=== PATIENT | female | born 1940 | race Caucasian/White ===

== ENCOUNTER 2017-01-16 15:01 | Emergency (ER) | payer OTHER, MEDICARE ==
[~2017-01-16] VITALS: Ht 154.9 cm; Wt 87.6 kg
[~2017-01-16 15:01] MED LIST: BACLOFEN10 MG PO; CARDIZEM LA180 MG PO; CARDIZEM60 MG PO; CARTIA XT240 MG PO; COLACE100 MG PO; CONZIP100 MG PO; COUMADIN1 MG PO; FUROSEMIDE20 MG PO; HCTZ PO; HYDROCHLOROTH12.5 M3 PO; HYDROCHLOROTHIA25 MG PO; HYDROCODON-ACE1 EAC7 PO; IRON325 M1 PO; LEVOTHYROXINE25 MCG PO; LOPRESSOR25 MG PO; LOVENOX40 MG/0.4 SC; METOPROLOL SUCC25 MG PO; PAIN RELIEF EX500 MG PO; PERCOCET 5/31 TABLET PO; PRAMIPEXOLE0.125 MG PO; PROMETHAZINE HC25 M1 PO; SENNA S TABLET1 EACH PO; TRAMADOL HCL50 MG PO; TYLENOL EXTRA500 MG PO; XARELTO20 MG PO
[2017-01-16 18:25] VITALS: BP 133/64
== END 2017-01-16 18:32 | disposition home or self-care (01) ==
LOC: EME 15:01
PROC: 0SWBXJZ Revision of Synthetic Substitute in Left Hip Joint, External Approach (ICD-10-PCS; principal; 2017-01-16)
DX: T84.021A Dislocation of internal left hip prosthesis, initial encounter (principal); Z96.642 Presence of left artificial hip joint; Z88.2 Allergy status to sulfonamides; Z88.8 Allergy status to other drugs, medicaments and biological substances; Z88.6 Allergy status to analgesic agent
CPT/HCPCS: 73501; 73502; 99281; 99285; J3010

== ENCOUNTER 2017-10-07 21:02 | Inpatient (IN) | payer OTHER, MEDICARE ==
[~2017-10-07] VITALS: Ht 152.4 cm; Wt 106.6 kg
[~2017-10-07 21:02] MED LIST changes: +K-DUR20 MEQ PO; +METOLAZONE5 MG PO
[2017-10-08] MEDS ORDERED: TYLENOL EXTRA500 MG PO (10:07)
[2017-10-08] MEDS ORDERED: RESTLESS LEG (10:09)
[2017-10-08] MEDS ORDERED: ASPERCREME 1035.4 GM TP (10:11)
[2017-10-08 10:15] VITALS: BP 154/74
[2017-10-08 17:12] VITALS: BP 147/70
[2017-10-08 20:56] VITALS: BP 126/62
[2017-10-09 00:15] VITALS: BP 117/68
[2017-10-09 04:37] VITALS: BP 145/63
[2017-10-09 05:53] LABS: HEMATOCRIT 32.1 % (36.0-46.0); MCV 97.3 FL (83-99)
[2017-10-09 05:55] LABS: HEMOGLOBIN 10.5 G/DL (11.9-15.5)
[2017-10-09 06:20] LABS: CHLORIDE 102 MEQ/L (99-109); GFR ESTIMATE (CALCULATED) 57 mL/min/; GLUCOSE 103 mg/dL (70-99); POTASSIUM 3.1 MEQ/L (3.7-5.4); SODIUM 139 MEQ/L (136-147); UREA NITROGEN (BUN) 19 mg/dL (9-23)
[2017-10-09 08:28] VITALS: BP 116/56
[2017-10-09 11:36] VITALS: BP 134/75
[2017-10-09 16:33] VITALS: BP 149/72
[2017-10-09 20:17] VITALS: BP 130/65
[2017-10-10 00:30] VITALS: BP 140/62
[2017-10-10 06:00] LABS: HEMATOCRIT 31.2 % (36.0-46.0); HEMOGLOBIN 10.5 G/DL (11.9-15.5)
[2017-10-10 08:27] VITALS: BP 128/69
[2017-10-10] MEDS ORDERED: BENADRYL25 MG PO (09:14)
[2017-10-10] MEDS ORDERED: BISACODYL5 MG PO (09:16)
[2017-10-10] MEDS ORDERED: ELIQUIS2.5 MG PO (09:17)
[2017-10-10] MEDS ORDERED: OXYCODONE HCL5 MG PO (09:17)
[2017-10-10 11:53] VITALS: BP 132/62
[2017-10-10 15:13] LABS: CHLORIDE 92 MEQ/L (99-109); POTASSIUM 2.9 MEQ/L (3.7-5.4); SODIUM 136 MEQ/L (136-147)
[2017-10-10 15:19] LABS: CREATININE 0.8 MG/DL (0.6-1.3); GFR ESTIMATE (CALCULATED) > 59 mL/min/; GLUCOSE 127 mg/dL (70-99); UREA NITROGEN (BUN) 16 mg/dL (9-23)
== END 2017-10-10 15:43 | disposition home or self-care (01) | DRG 470 ==
LOC: ENRESERV 21:02 → 2SOUTH 10-08 09:32 → ENRESERV 10-08 15:23 → 3EAST 10-08 17:01
PROVIDERS: Orthopaedic Surgery
PROC: 0SRC0J9 Replacement of Right Knee Joint with Synthetic Substitute, Cemented, Open Approach (ICD-10-PCS; principal; 2017-10-08)
DX: M17.11 Unilateral primary osteoarthritis, right knee (principal); Z68.42 Body mass index [BMI] 45.0-49.9, adult; Z96.643 Presence of artificial hip joint, bilateral; I48.91 Unspecified atrial fibrillation; E66.01 Morbid (severe) obesity due to excess calories; E87.6 Hypokalemia
CPT/HCPCS: 80048; 85014; 85018; C1776; J0131; J0690; J1170; J1885; J2250; J2405; J2795; J7050; J7120

== ENCOUNTER 2018-01-19 12:28 | Inpatient (IN) | payer OTHER, MEDICARE ==
[~2018-01-19] VITALS: Ht 154.9 cm; Wt 89.3 kg
[~2018-01-19 12:28] MED LIST changes: +ASPERCREME 1035.4 GM TP; +BENADRYL25 MG PO; +BISACODYL5 MG PO; +ELIQUIS2.5 MG PO; -LEVOTHYROXINE25 MCG PO; +MIRAPEX0.125 MG PO; +OXYCODONE HCL5 MG PO; +RESTLESS LEG; +SYNTHROID50 MCG PO
[2018-01-19 16:58] LABS: BASOPHIL (%) 0.1 % (0-1); EOSINOPHIL (%) 0.8 % (0-5); EOSINOPHIL COUNT 0.1 K/uL (0-0.3); HEMOGLOBIN 11.8 G/DL (11.9-15.5); IMMATURE GRANULOCYTE (%) 0.4 % (0.0-0.7); LYMPHOCYTE (%) 16.8 % (15-42); LYMPHOCYTE COUNT 1.6 K/uL (1.0-2.8); MCH 30.8 PG (29.0-34.0); MCHC 33.7 G/DL (30.0-36.0); MCV 91.4 FL (83-99); MONOCYTE (%) 7.6 % (3-12); MONOCYTE COUNT 0.7 K/uL (0-0.8); NEUTROPHIL (%) 74.3 % (45-76); NEUTROPHIL COUNT 6.9 K/uL (1.8-6.4); PLATELET COUNT 299 K/uL (156-360); RBC DIS.WIDTH-CV 12.4 % (11.8-14.6); RBC DIS.WIDTH-SD 41.4 % (39-53); RED BLOOD COUNT 3.83 M/uL (3.80-5.20); WHITE BLOOD COUNT 9.3 K/uL (4.1-10.2)
[2018-01-19 17:02] LABS: INTER. NORMALIZED RATIO 1.1
[2018-01-19] MEDS ORDERED: BENADRYL25 MG PO (17:04)
[2018-01-19] MEDS ORDERED: ULTRAM50 MG PO (17:14)
[2018-01-19] MEDS ORDERED: CREAM (17:15)
[2018-01-19 17:30] LABS: TROP-I INTERPRETATION NEGATIVE; TROPONIN-I 0.03 ng/mL (0.0-0.30)
[2018-01-19 17:40] LABS: ALBUMIN 4.1 G/DL (3.2-4.8); ALKALINE PHOSPHATASE 64 IU/L (3-129); ALT (GPT) 11 IU/L (3-49); AST (GOT) 23 IU/L (2-34); CHLORIDE 98 MEQ/L (99-109); CREATININE 0.9 MG/DL (0.6-1.3); GFR ESTIMATE (CALCULATED) > 59 mL/min/; GLUCOSE 113 mg/dL (70-99); MAGNESIUM 1.8 mg/dl (1.3-2.7); POTASSIUM 3.4 MEQ/L (3.7-5.4); SODIUM 138 MEQ/L (136-147); TOTAL PROTEIN 7.4 G/DL (6.4-8.3); UREA NITROGEN (BUN) 24 mg/dL (9-23)
[2018-01-19 17:54] LABS: THYROTROPIN (TSH) 5.7 MIU/L (0.4-5.5)
[2018-01-19 20:46] VITALS: BP 150/70
[2018-01-19 23:37] VITALS: BP 152/71
[2018-01-20 03:44] VITALS: BP 120/58
[2018-01-20 05:58] LABS: HEMATOCRIT 32.5 % (36.0-46.0); HEMOGLOBIN 10.8 G/DL (11.9-15.5); MCH 30.3 PG (29.0-34.0); MCHC 33.2 G/DL (30.0-36.0); MCV 91.3 FL (83-99); PLATELET COUNT 276 K/uL (156-360); RBC DIS.WIDTH-CV 12.8 % (11.8-14.6); RBC DIS.WIDTH-SD 42.3 % (39-53); RED BLOOD COUNT 3.56 M/uL (3.80-5.20)
[2018-01-20 06:19] LABS: CHLORIDE 100 MEQ/L (99-109); CREATININE 0.7 MG/DL (0.6-1.3); GFR ESTIMATE (CALCULATED) > 59 mL/min/; GLUCOSE 100 mg/dL (70-99); POTASSIUM 3.5 MEQ/L (3.7-5.4); SODIUM 139 MEQ/L (136-147); UREA NITROGEN (BUN) 18 mg/dL (9-23)
[2018-01-20 07:40] VITALS: BP 139/63
[2018-01-20 11:20] VITALS: BP 152/68
[2018-01-20 15:47] VITALS: BP 145/65
[2018-01-20 19:29] VITALS: BP 138/73
[2018-01-20 23:35] VITALS: BP 139/66
[2018-01-21 04:16] VITALS: BP 131/68
[2018-01-21 06:20] LABS: HEMATOCRIT 34.7 % (36.0-46.0); HEMOGLOBIN 11.2 G/DL (11.9-15.5); MCH 29.8 PG (29.0-34.0); MCHC 32.3 G/DL (30.0-36.0); MCV 92.3 FL (83-99); PLATELET COUNT 301 K/uL (156-360); RBC DIS.WIDTH-SD 43.9 % (39-53); RED BLOOD COUNT 3.76 M/uL (3.80-5.20)
[2018-01-21 06:43] LABS: CHLORIDE 96 MEQ/L (99-109); CREATININE 1.1 MG/DL (0.6-1.3); GFR ESTIMATE (CALCULATED) 51 mL/min/; GLUCOSE 99 mg/dL (70-99); MAGNESIUM 1.6 mg/dl (1.3-2.7); POTASSIUM 3.1 MEQ/L (3.7-5.4); SODIUM 138 MEQ/L (136-147); UREA NITROGEN (BUN) 21 mg/dL (9-23)
[2018-01-21 07:51] VITALS: BP 134/62
[2018-01-21 11:22] VITALS: BP 137/65
[2018-01-21 16:43] VITALS: BP 141/77
[2018-01-21 20:28] VITALS: BP 130/60
[2018-01-21 23:36] VITALS: BP 118/58
[2018-01-22 03:47] VITALS: BP 118/62
[2018-01-22 07:23] LABS: CHLORIDE 97 MEQ/L (99-109); CREATININE 1.1 MG/DL (0.6-1.3); GFR ESTIMATE (CALCULATED) 51 mL/min/; GLUCOSE 98 mg/dL (70-99); POTASSIUM 3.6 MEQ/L (3.7-5.4); SODIUM 138 MEQ/L (136-147); UREA NITROGEN (BUN) 34 mg/dL (9-23)
[2018-01-22 08:22] VITALS: BP 134/63
[2018-01-22 11:20] VITALS: BP 137/63
[2018-01-22] MEDS ORDERED: TIZANIDINE HCL4 MG PO (13:12)
[2018-01-22] MEDS ORDERED: OXYCODONE HCL5 MG PO (13:12)
[2018-01-22 15:47] VITALS: BP 146/52
== END 2018-01-22 17:34 | disposition home health service (06) | DRG 560 ==
LOC: EME 12:28 → EDOF 18:17 → 3EAST 18:17 → ENRESERV 18:21 → 3EAST 20:36
PROVIDERS: Emergency Medicine; Hospitalist; Internal Medicine; Orthopaedic Surgery
PROC: 0SWBXJZ Revision of Synthetic Substitute in Left Hip Joint, External Approach (ICD-10-PCS; principal; 2018-01-19)
DX: T84.021A Dislocation of internal left hip prosthesis, initial encounter (principal); I48.92 Unspecified atrial flutter; E87.6 Hypokalemia; G25.81 Restless legs syndrome; I10 Essential (primary) hypertension; I48.2 Chronic atrial fibrillation; Z96.651 Presence of right artificial knee joint; Z96.643 Presence of artificial hip joint, bilateral; Y79.2 Prosthetic and other implants, materials and accessory orthopedic devices associated with adverse incidents; E07.9 Disorder of thyroid, unspecified; E66.9 Obesity, unspecified; Z79.01 Long term (current) use of anticoagulants; Z88.5 Allergy status to narcotic agent; Z88.2 Allergy status to sulfonamides; Z88.6 Allergy status to analgesic agent; Z88.1 Allergy status to other antibiotic agents; Z68.37 Body mass index [BMI] 37.0-37.9, adult; Z90.49 Acquired absence of other specified parts of digestive tract
CPT/HCPCS: 71045; 73501; 73502; 73700; 73702; 76000; 80048; 80053; 83735; 84439; 84443; 84484; 85025; 85027; 85610; 85730; 93005; 97530 GO; 99281; 99285; J0131; J0330; J1170; J1650; J3010; J3480; J7030; J7050

== ENCOUNTER 2018-03-18 09:49 | Emergency (ER) | payer OTHER, MEDICARE ==
[~2018-03-18] VITALS: Ht 152.4 cm; Wt 88.7 kg
[~2018-03-18 09:49] MED LIST changes: +CREAM; +TIZANIDINE HCL4 MG PO; +ULTRAM50 MG PO
[2018-03-18 12:11] LABS: BASOPHIL (%) 0.3 % (0-1); EOSINOPHIL (%) 0.3 % (0-5); HEMATOCRIT 34.5 % (36.0-46.0); HEMOGLOBIN 11.5 G/DL (11.9-15.5); IMMATURE GRANULOCYTE (%) 0.6 % (0.0-0.7); LYMPHOCYTE (%) 13.3 % (15-42); LYMPHOCYTE COUNT 1.3 K/uL (1.0-2.8); MCH 30.2 PG (29.0-34.0); MCHC 33.3 G/DL (30.0-36.0); MCV 90.6 FL (83-99); MONOCYTE (%) 7.2 % (3-12); MONOCYTE COUNT 0.7 K/uL (0-0.8); NEUTROPHIL (%) 78.3 % (45-76); NEUTROPHIL COUNT 7.7 K/uL (1.8-6.4); PLATELET COUNT 290 K/uL (156-360); RBC DIS.WIDTH-CV 13.3 % (11.8-14.6); RBC DIS.WIDTH-SD 44.3 % (39-53); RED BLOOD COUNT 3.81 M/uL (3.80-5.20); WHITE BLOOD COUNT 9.8 K/uL (4.1-10.2)
[2018-03-18 12:21] LABS: CHLORIDE 100 mEq/L (99-109); POTASSIUM 3.3 mEq/L (3.7-5.4); SODIUM 137 mEq/L (136-147)
[2018-03-18 12:23] LABS: GLUCOSE 106 mg/dL (70-99)
[2018-03-18 12:27] LABS: CREATININE 0.9 mg/dL (0.6-1.3); GFR ESTIMATE (CALCULATED) > 59 mL/min/; UREA NITROGEN (BUN) 25 mg/dL (9-23)
[2018-03-18 14:50] VITALS: BP 132/59
== END 2018-03-18 14:50 | disposition home or self-care (01) ==
LOC: EME 09:49
PROVIDERS: Emergency Medicine
PROC: 0SSBXZZ Reposition Left Hip Joint, External Approach (ICD-10-PCS; principal; 2018-03-18)
DX: T84.021A Dislocation of internal left hip prosthesis, initial encounter (principal); X50.1XXA Overexertion from prolonged static or awkward postures, initial encounter; Y93.H2 Activity, gardening and landscaping; Y92.007 Garden or yard of unspecified non-institutional (private) residence as the place of occurrence of the external cause; Y79.2 Prosthetic and other implants, materials and accessory orthopedic devices associated with adverse incidents; Z96.643 Presence of artificial hip joint, bilateral; I10 Essential (primary) hypertension; E03.9 Hypothyroidism, unspecified; I48.91 Unspecified atrial fibrillation; Z88.2 Allergy status to sulfonamides; Z88.1 Allergy status to other antibiotic agents; Z96.659 Presence of unspecified artificial knee joint
CPT/HCPCS: 73501; 73502; 80048; 85025; 99281; 99285; J3010

== ENCOUNTER 2018-04-09 09:14 | Observation (INO) | payer OTHER, MEDICARE ==
[~2018-04-09] VITALS: Ht 154.9 cm; Wt 90.1 kg
[2018-04-09 09:39] LABS: INTER. NORMALIZED RATIO 1.1
[2018-04-09 09:42] LABS: PTT 36.3 SEC (25-37)
[2018-04-09 09:45] LABS: CHLORIDE 96 mEq/L (99-109); POTASSIUM 3.3 mEq/L (3.7-5.4); SODIUM 138 mEq/L (136-147)
[2018-04-09 09:47] LABS: GLUCOSE 105 mg/dL (70-99)
[2018-04-09 09:48] LABS: BASOPHIL (%) 0.2 % (0-1); EOSINOPHIL (%) 0.9 % (0-5); EOSINOPHIL COUNT 0.1 K/uL (0-0.3); HEMATOCRIT 40.8 % (36.0-46.0); IMMATURE GRANULOCYTE (%) 0.5 % (0.0-0.7); LYMPHOCYTE COUNT 1.8 K/uL (1.0-2.8); MCH 30.8 PG (29.0-34.0); MCHC 34.3 G/DL (30.0-36.0); MCV 89.7 FL (83-99); MONOCYTE (%) 7.7 % (3-12); MONOCYTE COUNT 0.8 K/uL (0-0.8); NEUTROPHIL (%) 72.7 % (45-76); NEUTROPHIL COUNT 7.4 K/uL (1.8-6.4); PLATELET COUNT 349 K/uL (156-360); RBC DIS.WIDTH-CV 13.5 % (11.8-14.6); RBC DIS.WIDTH-SD 44.2 % (39-53); RED BLOOD COUNT 4.55 M/uL (3.80-5.20); WHITE BLOOD COUNT 10.2 K/uL (4.1-10.2)
[2018-04-09 09:51] LABS: GFR ESTIMATE (CALCULATED) 57 mL/min/; UREA NITROGEN (BUN) 23 mg/dL (9-23)
[2018-04-09 09:55] LABS: TROP-I INTERPRETATION NEGATIVE; TROPONIN-I 0.02 ng/mL (0.0-0.30)
[2018-04-09] MEDS ORDERED: TIZANIDINE HCL2 MG PO (13:33)
[2018-04-09 13:59] VITALS: BP 113/82
[2018-04-09 14:06] LABS: THYROTROPIN (TSH) 4.6 MIU/L (0.4-5.5)
[2018-04-09 15:30] LABS: TROP-I INTERPRETATION NEGATIVE; TROPONIN-I 0.02 ng/mL (0.0-0.30)
[2018-04-09 15:41] VITALS: BP 116/65
[2018-04-09 16:58] LABS: MAGNESIUM 1.8 mg/dl (1.3-2.7)
[2018-04-09 20:49] VITALS: BP 112/69
[2018-04-09 21:19] LABS: TROP-I INTERPRETATION NEGATIVE; TROPONIN-I 0.03 ng/mL (0.0-0.30)
[2018-04-09 22:45] VITALS: BP 15/62
[2018-04-10 03:30] VITALS: BP 133/63
[2018-04-10 03:39] LABS: HEMATOCRIT 36.8 % (36.0-46.0); HEMOGLOBIN 12.5 G/DL (11.9-15.5); MCH 30.9 PG (29.0-34.0); MCV 91.1 FL (83-99); PLATELET COUNT 324 K/uL (156-360); RBC DIS.WIDTH-CV 13.5 % (11.8-14.6); RBC DIS.WIDTH-SD 45.2 % (39-53); RED BLOOD COUNT 4.04 M/uL (3.80-5.20); WHITE BLOOD COUNT 8.6 K/uL (4.1-10.2)
[2018-04-10 04:08] LABS: TROP-I INTERPRETATION NEGATIVE; TROPONIN-I 0.02 ng/mL (0.0-0.30)
[2018-04-10 07:21] VITALS: BP 127/65
[2018-04-10] MEDS ORDERED: XARELTO20 MG PO (10:38)
[2018-04-10] MEDS ORDERED: CARDIZEM60 MG PO (10:40)
[2018-04-10 10:52] LABS: ALBUMIN 4.1 g/dL (3.2-4.8)
[2018-04-10 10:53] LABS: CHLORIDE 99 mEq/L (99-109); SODIUM 137 mEq/L (136-147)
[2018-04-10 10:55] LABS: GLUCOSE 129 mg/dL (70-99); TOTAL PROTEIN 7.6 g/dL (6.4-8.3)
[2018-04-10 10:57] LABS: TOTAL BILIRUBIN 1.7 mg/dL (0.0-1.0)
[2018-04-10 10:58] LABS: ALKALINE PHOSPHATASE 74 IU/L (3-129)
[2018-04-10 10:59] LABS: CREATININE 1.2 mg/dL (0.6-1.3); GFR ESTIMATE (CALCULATED) 46 mL/min/
[2018-04-10 11:00] LABS: AST (GOT) 20 IU/L (2-34); UREA NITROGEN (BUN) 31 mg/dL (9-23)
[2018-04-10 11:02] LABS: ALT (GPT) 14 IU/L (3-49)
== END 2018-04-10 13:38 | disposition home or self-care (01) ==
LOC: EME 09:14 → 4EAST 12:26 → EDOF 12:26 → ENRESERV 12:28 → 4EAST 13:56
PROVIDERS: Emergency Medicine; Hospitalist
DX: I48.91 Unspecified atrial fibrillation (principal); I48.92 Unspecified atrial flutter; E87.6 Hypokalemia; I10 Essential (primary) hypertension; E03.9 Hypothyroidism, unspecified; G89.29 Other chronic pain; R60.0 Localized edema; E66.9 Obesity, unspecified; Z79.01 Long term (current) use of anticoagulants; Z82.49 Family history of ischemic heart disease and other diseases of the circulatory system; Z96.641 Presence of right artificial hip joint; Z90.49 Acquired absence of other specified parts of digestive tract; Z88.1 Allergy status to other antibiotic agents; Z88.2 Allergy status to sulfonamides
CPT/HCPCS: 71045; 80048; 80053; 83735; 84443; 84484; 85025; 85027; 85610; 85730; 93005; 99281; 99285; G0378; J1742; J3475; J3480; J7050

== ENCOUNTER → 2018-05-13 | Outpatient (CLI) | payer MEDICARE ==
[~2018-05-13] MED LIST changes: +TIZANIDINE HCL2 MG PO
== END | disposition home or self-care (01) ==
LOC: CDC 10:16
DX: Z01.810 Encounter for preprocedural cardiovascular examination (principal); G89.4 Chronic pain syndrome; R94.31 Abnormal electrocardiogram [ECG] [EKG]
CPT/HCPCS: 93000

== ENCOUNTER → 2018-05-14 | Outpatient (CLI) | payer OTHER, MEDICARE ==
[2018-05-14 15:59] LABS: APPEARANCE BLOODY; MONONUCLEAR WBC'S 67 %; POLYNUCLEAR WBC'S 33 % (0-25); RED CELL COUNT 21000 /MM^3 (0-1); SYNOVIAL FLUID EOSINOPHILS 0 % (0-25); WHITE CELL COUNT 1311 /MM^3 (0-200.0)
[2018-05-15 06:58] LABS: CRYSTALS NO CRYSTALS SEEN
== END | disposition home or self-care (01) ==
LOC: RAD 13:33 → EDSTATUS 14:00
PROVIDERS: Orthopaedic Surgery
PROC: 0S9B3ZZ Drainage of Left Hip Joint, Percutaneous Approach (ICD-10-PCS; principal; 2018-05-14)
PROC: BW1C1ZZ Fluoroscopy of Lower Extremity using Low Osmolar Contrast (ICD-10-PCS; principal; 2018-05-14)
DX: M24.452 Recurrent dislocation, left hip (principal); Z96.641 Presence of right artificial hip joint
CPT/HCPCS: 77002; 87205; 89051